=== PATIENT | female | born 1935 | race Caucasian/White ===

== ENCOUNTER 2017-12-25 17:29 | Inpatient (IN) | payer OTHER ==
[~2017-12-25] VITALS: Ht 160 cm; Wt 51.3 kg
--- NOTE | ~2017-12-25 | EKG ---
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: elida : 1935 Requested By: Gay Hensley Order Number: [id number] MD: Rubio Lyons Measurements Intervals Lamar Rate: 87 P: 94 IA: 138 QRS: 90 QRSD: 81 T: 66 QT: 341 QTc: 411 Interpretive Statements Sinus rhythm Biatrial enlargement Borderline right axis deviation Probable left ventricular hypertrophy Compared to ECG 05/03/2012 06:44:14 Atrial abnormality now present Ventricular premature complex(es) no longer present Electronically Signed On 12-26-2017 11:05:45 CDT by Rubio Lyons [email or web address] <ELECTRONICALLY SIGNED> By: Rubio Lyons MD 12/26/17 1105 [id number] 1731 Rubio Lyons MD /EPI
[~2017-12-25 17:29] MED LIST: ACETAMINOPHEN-1 EAC1 PO; ASPIRIN EC325 M1 PO; CARISOPRODOL 3350 M1 PO; CENTRUM SILVER1 EAC4 PO; LEVOTHYROXINE0.05 MG PO; NORCO 5-325 TA1 EACH PO; TRAMADOL 50 MG50 MG PO
[2017-12-25 17:36] VITALS: BP 177/109
[2017-12-25 17:51] LABS: BASOPHILS 1.1 % (0.0-2.0); EOSINOPHILS 3.2 % (0.0-3.0); HEMOGLOBIN 14.6 gm/dL (12.0-15.0); LYMPHOCYTES 27.6 % (24.0-44.0); MCH 31.5 pg (26.0-34.0); MCHC 34.7 g/dL (28.0-37.0); MCV 90.9 fL (80.0-100.0); MONOCYTES 7.4 % (1.0-8.0); PLATELET COUNT 228 thou/uL (150-400); POLYS 60.7 % (36.0-66.0); RBC 4.62 mil/uL (4.20-5.00); RDW 13.4 % (10.5-14.5); WBC 8.3 thou/uL (4.0-11.0)
[2017-12-25 18:05] LABS: CALCIUM 9.2 mg/dL (8.5-10.1); CREATININE 0.9 mg/dL (0.6-1.0); POTASSIUM 4.2 mmol/L (3.5-5.1)
[2017-12-25] MEDS ORDERED: ASPIRIN81 M2 PO (18:17)
[2017-12-25 19:28] VITALS: BP 152/83
[2017-12-25 20:10] VITALS: BP 189/101
[2017-12-25 23:14] VITALS: BP 135/66
[2017-12-26 03:54] VITALS: BP 120/66
[2017-12-26 06:35] LABS: ANION GAP 9 mmol/L (7-16); BUN 19 mg/dL (7-18); CALCIUM 8.5 mg/dL (8.5-10.1); CHLORIDE 106 mmol/L (98-107); CHOLESTEROL 255 mg/dL (<200); CO2 25 mmol/L (21-32); CREATININE 0.9 mg/dL (0.6-1.0); GLUCOSE 90 mg/dL (74-106); HDL CHOLESTEROL 45 mg/dL (>40); LDL CHOLESTEROL 188 mg/dL (<100); POTASSIUM 4.1 mmol/L (3.5-5.1); SODIUM 140 mmol/L (136-145); TC:HDL 5.7 Ratio (Not establshd); TRIGLYCERIDE 111 mg/dL (<150); VLDL 22 mg/dL (<40)
[2017-12-26 08:00] VITALS: BP 151/64; BP 96/68
[2017-12-26] MEDS ORDERED: LISINOPRIL10 MG PO (12:14)
[2017-12-26] MEDS ORDERED: CLOPIDOGREL75 MG PO (12:14)
[2017-12-26 12:17] VITALS: BP 96/68
[2017-12-26] MEDS ORDERED: ATORVASTATIN CA40 MG PO (12:19)
[2017-12-26 12:23] VITALS: BP 96/68
== END 2017-12-26 12:58 | disposition home or self-care (01) | DRG 65 ==
LOC: ER 17:29 → 3W 18:54 → EROBS 18:54 → 3W 20:08
PROVIDERS: Emergency Medicine; Nurse Practitioner Family
DX: I63.9 Cerebral infarction, unspecified (principal); E87.1 Hypo-osmolality and hyponatremia; M19.90 Unspecified osteoarthritis, unspecified site; E03.9 Hypothyroidism, unspecified; E78.5 Hyperlipidemia, unspecified; I10 Essential (primary) hypertension; M81.0 Age-related osteoporosis without current pathological fracture; Z90.49 Acquired absence of other specified parts of digestive tract; F17.210 Nicotine dependence, cigarettes, uncomplicated; Z90.710 Acquired absence of both cervix and uterus; Z79.82 Long term (current) use of aspirin; Z79.899 Other long term (current) drug therapy; Z88.2 Allergy status to sulfonamides; Z82.49 Family history of ischemic heart disease and other diseases of the circulatory system
CPT/HCPCS: 10779

== ENCOUNTER 2021-08-08 16:01 | Inpatient (IN) | payer OTHER ==
[~2021-08-08] VITALS: Ht 160 cm; Wt 72.6 kg
[~2021-08-08 16:01] MED LIST changes: +ASPIRIN81 M2 PO; +ATORVASTATIN CA40 MG PO; +CLOPIDOGREL75 MG PO; +LISINOPRIL10 MG PO
[2021-08-08 16:03] VITALS: BP 169/90
[2021-08-08 16:29] LABS: ABSOLUTE NEUTROPHILS 8.4 thou/uL (1.4-8.2); BASOPHILS 0.2 % (0.0-2.0); EOSINOPHILS 1.3 % (0.0-3.0); HEMATOCRIT 40.5 % (37.0-47.0); HEMOGLOBIN 13.5 gm/dL (12.0-15.0); LYMPHOCYTES 7.5 % (24.0-44.0); MCH 30.3 pg (26.0-34.0); MCHC 33.3 g/dL (28.0-37.0); MCV 90.8 fL (80.0-100.0); MONOCYTES 6.2 % (1.0-8.0); PLATELET COUNT 207 thou/uL (150-400); POLYS 84.8 % (36.0-66.0); RBC 4.47 mil/uL (4.20-5.00); RDW 13.5 % (10.5-14.5)
[2021-08-08 16:33] LABS: CALCIUM 9.4 mg/dL (8.5-10.1); POTASSIUM 4.3 mmol/L (3.5-5.1)
--- NOTE | 2021-08-08 19:09 | NUR ---
Pt report given to LYSSA Segovia
[2021-08-08 19:35] VITALS: BP 169/67
[2021-08-08 20:42] VITALS: BP 122/74
[2021-08-08] MEDS ORDERED: PLAVIX 75 MG TA75 MG PO (22:50)
[2021-08-08] MEDS ORDERED: LIPITOR 20 MG T20 M1 PO (22:50)
[2021-08-08] MEDS ORDERED: LEVO-T75 MCG PO (22:51)
[2021-08-08] MEDS ORDERED: NORVASC 2.5 MG2.5 MG PO (22:51)
--- NOTE | 2021-08-09 00:21 | NUR ---
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 x3 to transfer pt. a&ox3. vs stable. RA. ellington in place. clear yellow urine noted. admission done. pain treated x1 with prn iv pain med. currently resting. will continue to monitor.
[2021-08-09 03:50] VITALS: BP 148/93
[2021-08-09 08:12] VITALS: BP 160/92
--- NOTE | 2021-08-09 10:34 | NUR ---
Assumed care of pt at 0700. Pt a&ox3. Pain controlled with prn pain medications. Med rec completed with the help of patient's daughter over the phone. Quiñonez catheter in place. Surgery scheduled for 1330. Patient and family aware. Call light within reach. Fall precautions in place. Will continue to monitor.
--- NOTE | 2021-08-09 15:08 | NUR ---
Attempted to see patient but she is in sx. Admits from fall from home s/p hip fracture. Casemgt following for dc planning.
[2021-08-09 18:01] VITALS: BP 164/65
[2021-08-09 19:30] VITALS: BP 141/50
[2021-08-09 21:04] VITALS: BP 174/56
--- NOTE | 2021-08-10 01:54 | NUR ---
PT WAS OBSERVED LYING ON HER BED WITH HER EYES CLOSED AT SHIFT CHANGE.PER REPORT,PT'S HEART RATE DROPS TO THE MID 40'2 TO 50'2 WHILE PT IS ASLEEP.HEART RATE HAS BEE IN THE MID 60'S SINCE SHIFT CHANGE.TRAMADOL GIVEN X1 FOR L HIP PAIN.ZELAYA CATH IN PLACE.PT RESTING ON HER BED AT THIS TIME.DRSG INTACT.CALL LIGHT WITHIN REACH.
[2021-08-10 05:30] LABS: CALCIUM 8.1 mg/dL (8.5-10.1); CREATININE 1.1 mg/dL (0.6-1.0); POTASSIUM 4.2 mmol/L (3.5-5.1)
[2021-08-10 05:46] LABS: HEMATOCRIT 33.1 % (37.0-47.0); MCH 30.7 pg (26.0-34.0); MCHC 33.7 g/dL (28.0-37.0); MCV 91.1 fL (80.0-100.0); RBC 3.63 mil/uL (4.20-5.00); RDW 13.5 % (10.5-14.5)
[2021-08-10 05:48] LABS: HEMOGLOBIN 11.1 gm/dL (12.0-15.0)
[2021-08-10 08:25] VITALS: BP 156/72
--- NOTE | 2021-08-10 09:24 | NUR ---
ASSUMED PT CARE THIS AM. PT IS ALERT & ORIENTED X4. PT HAS IV SITE ON LAC SALINE LOCKED. PT IS UP WITH ASSIST X1 TO THE BEDSIDE COMMODE. PT HAS ZELAYA CATH IN PLACE. PT IS ON ROOM AIR. NO C/O OF PAIN THIS AM. GIVEN SCHEDULED MEDICATION PER ORDERED. PHYSICAL THERAPY WORKING WITH PT. WILL FOLLOW POC.
[2021-08-10 15:59] VITALS: BP 185/51
[2021-08-10 20:37] VITALS: BP 111/814
[2021-08-11 07:27] VITALS: BP 143/58
--- NOTE | 2021-08-11 09:20 | NUR ---
PT LYING IN BED. TRAMADOL PROVIDING PAIN RELIEF. RESTING COMFORTABLY. FREQUENT OBSERVATION.
[2021-08-11 15:55] VITALS: BP 156/61
--- NOTE | 2021-08-11 18:41 | NUR ---
ASSUMED CARE OF PT AT 0700. PT ORIENTED BUT IRRITABLE AND FORGETFUL. PT COMPLAINING OF HIP PAIN AND DOES NOT LIKE THE FOOD. VS STABLE, PT ON ROOM AIR, NO EDEMA NOTED, PULSES PRESENT. ZELAYA CATHETER IN PLACE FOR IMMOBILIZATION. NO BOWEL MOVEMENT. BOWEL SOUNDS PRESENT. PRN PAIN MEDICATIONS GIVEN, FENTANYL EFFECTIVE. DAUGHTER AT BEDSIDE. NO CONCERNS AT THIS TIME.
[2021-08-11 21:17] VITALS: BP 190/93
--- NOTE | 2021-08-12 08:55 | NUR ---
PT LYING IN BED. TRAMADOL PROVIDING PAIN RELIEF. RESTING COMFORTABLY. NO NEEDS VOICED. CALL LIGHT WITHIN REACH. FREQUENT OBSERVATION.
[2021-08-12] MEDS ORDERED: LATANOPROST 0.2.5 ML OPHTHALMIC (09:30)
--- NOTE | 2021-08-12 15:30 | NUR ---
PT ADMITTED RELATED TO LT HIP FX S/P HEMIARTHROPLASTY ANTERIOR APPROACH. CM REVIEWED CHART AND SPOKE WITH CARE TEAM. CM MET WITH PT AND DTR ABIODUN AT BEDSIDE THIS DAY. PT APPEARED TO BE A&O X4 BUT DIDN'T PARTICIPATE IN ASSEMENT MUCH MOST ANSWERS GIVEN BY DTR. IT WAS INDICATED THAT PT HAD BEEN LIVING WITH DTR IN A HOUSE IN [facility] WITH 8 STEPS TO ENTER AND NONE INSIDE. PT HAD BEEN USING A 4WW WITH A SEAT HUMAN RESOURCES SUPPORT SPECIALIST. PT NEEDED ASSIST WITH BATHING AND FAM ASSISTED WITH MEAL PREP HUMAN RESOURCES SUPPORT SPECIALIST. THEY INDICATED NO PRIOR HH OR OP THERAPY. THEY WERE INTERESTED IN 5N UPON DC. CM NOTIFIED LIAISON. 5N ASSESSED AND ARE ABLE TO ACCEPT PT FOR ADMISSION THIS DAY. PT TO DC TO 5N ACUTE INPATIENT REHAB UNIT THIS DAY. NURSE TO CALL REPORT TO . PT AND DTR ARE AWARE AND AGREEABLE. NO OTHER CM INTERVENTION INDICATED. CASE CLOSED.
--- NOTE | 2021-08-12 18:35 | NUR ---
Patient a&ox3-4 but irritable. L amandeep in place, C/D/I. Ice packs offered. Tramadol administered X1 this shift for PT. Patient worked with PT/OT and tolerated well. Tolerating PO intake well. Plan is for rehab 5N tomorrow 08/13
[2021-08-12 20:02] VITALS: BP 148/47
== END 2021-08-13 | DRG 522 ==
LOC: ER 16:01 → 4S 18:25 → EROBS 18:25 → 4S 19:43
PROVIDERS: Pediatrics; Student in an Organized Health Care Education/Training Program; ADMIT Surgery; ATTEND Surgery
PROC: 0SRS019 Replacement of Left Hip Joint, Femoral Surface with Metal Synthetic Substitute, Cemented, Open Approach (ICD-10-PCS; principal; 2021-08-09)
DX: S72.012A Unspecified intracapsular fracture of left femur, initial encounter for closed fracture (principal); D62 Acute posthemorrhagic anemia; E78.5 Hyperlipidemia, unspecified; M81.0 Age-related osteoporosis without current pathological fracture; E03.9 Hypothyroidism, unspecified; W18.39XA Other fall on same level, initial encounter; Y93.01 Activity, walking, marching and hiking; F17.210 Nicotine dependence, cigarettes, uncomplicated; I65.22 Occlusion and stenosis of left carotid artery; R53.81 Other malaise; I10 Essential (primary) hypertension; E11.51 Type 2 diabetes mellitus with diabetic peripheral angiopathy without gangrene; Z20.822 Contact with and (suspected) exposure to COVID-19; M19.90 Unspecified osteoarthritis, unspecified site; Z90.710 Acquired absence of both cervix and uterus; Z88.8 Allergy status to other drugs, medicaments and biological substances; Y92.89 Other specified places as the place of occurrence of the external cause; Y99.8 Other external cause status; Z86.73 Personal history of transient ischemic attack (TIA), and cerebral infarction without residual deficits; Z71.6 Tobacco abuse counseling; Z28.21 Immunization not carried out because of patient refusal
CPT/HCPCS: 10195; 50010; 50101; 50382; 50414; 51057; 51225; 51226; 52304; 53000; 53078; 56460; 56524; 56527; 56528; 57093; 57095; 57103; 57165; 58637; 58847; 62110; 62900; 65130; 70005